=== PATIENT | male | born 1970 | race Two or more races ===

== ENCOUNTER 2019-07-05 05:03 | Day surgery (SDC) | payer OTHER ==
[~2019-07-05 05:03] MED LIST: GAVISCON ES TA1 EACH PO; OMEPRAZ PO; PANTO PO
== END 2019-07-05 13:00 | disposition home or self-care (01) ==
LOC: CIR.AMB 05:03
DX: K80.10 Calculus of gallbladder with chronic cholecystitis without obstruction (principal)

== ENCOUNTER → 2019-07-07 | Emergency (ER) | payer OTHER ==
[~2019-07-07] VITALS: Ht 180.3 cm; Wt 100.2 kg
[~2019-07-07] MED LIST changes: +CEFADROXIL500 MG PO; +INTESTINEX680 M1 PO
== END | disposition left against medical advice (07) ==
LOC: ER 17:51
DX: M62.838 Other muscle spasm (principal)

== ENCOUNTER 2019-07-08 15:58 | Emergency (ER) | payer OTHER ==
[~2019-07-08] VITALS: Ht 175.3 cm; Wt 90.7 kg
[~2019-07-08 15:58] MED LIST changes: -CEFADROXIL500 MG PO; -INTESTINEX680 M1 PO
[2019-07-09] MEDS ORDERED: CEFADROXIL500 MG PO (10:11)
[2019-07-09] MEDS ORDERED: INTESTINEX680 M1 PO (10:11)
== END 2019-07-09 10:26 ==
LOC: ER 15:58
DX: G89.18 Other acute postprocedural pain (principal); R10.13 Epigastric pain; J95.89 Other postprocedural complications and disorders of respiratory system, not elsewhere classified; J98.11 Atelectasis